=== PATIENT | female | born 1985 | race Caucasian/White ===

== ENCOUNTER 2018-12-24 09:24 | Emergency (ER) | payer BC ==
[2018-12-24 09:46] VITALS: BP 117/87
--- NOTE | 2018-12-24 10:01 | UC ---
Abdominal Pain Female HPI - HPI Summary HPI Summary: 33 yo, awoke with abdominal pain this morning with a sense of bloating. Was well yesterday, passed a normal stool yesterday afternoon. Hx of loose stools off and on since her cholecystectomy. No vomiting, decreased appetite. LMP 3 weeks ago, not sexually active, no vaginal discharge. Hx of ovarian cyst remotely. Not worsening. - History of Current Complaint Chief Complaint: UCAbdominalPain Stated Complaint: ABD TENDERNESS Time Seen by Provider: 12/24/18 09:48 Hx Obtained From: Patient Hx Last Menstrual Period: 12/03/18 Onset/Duration: Sudden Onset Timing: Constant Pain Intensity: 6 Location: Discrete At: LLQ, Other - some in umbilical area. Radiates: No Character: Cramping, Sharp Aggravating Factor(s): Movement Alleviating Factor(s): Position - relieves with standing. Associated Signs and Symptoms: Negative: Diaphoresis, Fever, Chest Pain, Back Pain, Blood in Stool, Urinary Symptoms, Vaginal Bleeding, Vaginal Discharge, Nausea, Vomiting, Diarrhea Allergies/Adverse Reactions: Allergies Allergy/AdvReac Type Severity Reaction Status Date / Time Sulfa (Sulfonamide Allergy Hives Verified 12/24/18 09:46 Antibiotics) Home Medications: Home Medications NK [No Home Medications Reported] 12/24/18 [History Confirmed 12/24/18] PMH/Surg Hx/FS Hx/Imm Hx - Additional Past Medical History Additional PMH: obese Unexplained sepsis 6 months ago with septic knee joint. GI/ History: Other - loose stools post cholecystectomy - Surgical History Surgical History: Yes Surgery Procedure, Year, and Place: gallbladder removal - Social History Alcohol Use: Rare Substance Use Type: None Smoking Status (MU): Never Smoked Tobacco Review of Systems All Other Systems Reviewed And Are Negative: Yes Constitutional: Positive: Fatigue Cardiovascular: Positive: Negative Gastrointestinal: Positive: Abdominal Pain Genitourinary: Negative: Dysuria, Hematuria, Frequency, Urgency Is Patient Immunocompromised?: Yes - possibly, hx unexplained sepsis Physical Exam Triage Information Reviewed: Yes Appearance: Ill-Appearing - looks uncomfortable and unwell, mild motor restlessness, most comfortable standing. Vital Signs: Initial Vital Signs Temp 97.9 F 12/24/18 09:40 Pulse 102 12/24/18 09:40 Resp 16 12/24/18 09:40 BP 117/87 12/24/18 09:40 Pulse Ox 99 12/24/18 09:40 Eyes: Positive: Conjunctiva Inflamed ENT: Positive: Pharynx normal Neck: Positive: Supple, Nontender, No Lymphadenopathy Respiratory: Positive: Lungs clear, Normal breath sounds Cardiovascular: Positive: RRR, Tachycardia Abdomen Description: Positive: No Organomegaly, Soft, Distended, Guarding - voluntary guarding with palpation of LLQ. Negative: CVA Tenderness (R), CVA Tenderness (L) Musculoskeletal Exam: Normal Neurological Exam: Normal Neurological: Positive: Alert, Muscle Tone Normal Psychological Exam: Normal Diagnostics - Laboratory Lab Results: UA 1+ esterace positive. Abd Pain Female Course/Dx - Course Course Of Treatment: Advised ER evaluation of acute onset of abdominal pain. Clinically possible diverticulitis. - Differential Dx/Diagnosis Differential Diagnosis: Appendicitis, Diverticulitis, Renal Colic Provider Diagnosis: Acute abdominal pain Discharge ED - Sign-Out/Discharge Documenting (check all that apply): Patient Departure All imaging exams completed and their final reports reviewed: No Studies - Discharge Plan Condition: Stable Disposition: HOME Patient Education Materials: Acute Abdominal Pain (ED) Referrals: Aurea Herring MD [Primary Care Provider] - Additional Instructions: Please proceed to the [facility] for evaluation. At this time, NOTHING TO EAT OR DRINK UNTIL YOU ARE EVALUATED THERE. - Billing Disposition and Condition Condition: STABLE Disposition: Home
== END 2018-12-24 10:37 | disposition home or self-care (01) ==
LOC: UCCORT 09:24
DX: R10.32 Left lower quadrant pain (principal); Z90.49 Acquired absence of other specified parts of digestive tract
CPT/HCPCS: 81003; 87086; 99202; G0463